=== PATIENT | female | born 1965 | race Caucasian/White ===

== ENCOUNTER → 2016-12-29 | Outpatient (CLI) | payer OTHER ==
--- NOTE | 2016-12-29 16:22 | KCIC ---
PROCEDURE MRI lumbar spine without contrast. HISTORY Chronic low back pain, spasmodic cerebral palsy, scoliosis, bilateral leg pain TECHNIQUE Multiplanar, multi sequential non contrast MR imaging was performed of the lumbar spine. COMPARISON None FINDINGS There is motion degradation even for repeated images. Lumbar vertebral body stature and AP alignment are adequate. Conus terminates at L1-2. There is moderate levoscoliosis centered about L1-2. There is mild disc desiccation L4-5 and L2-3, also mild degenerative disc disease at L1-L2. T11-12: Spinal canal and neural foramina are adequate. T12-L1: Neural foramina and spinal canal are adequate. L1-2: Spinal canal and neural foramina are adequate. L2-3: Spinal canal and neural foramina are adequate. L3-4: Spinal canal and neural foramina are adequate. L4-5: Spinal canal and left neural foramen are adequate, likely mild narrowing of the right neural foramen. There is right posterolateral annular tear. L5-S1: There is moderate left facet hypertrophic change. Spinal canal is adequate. There is moderate narrowing of the left neural foramen, right neural foramen adequate. IMPRESSION 1. Exam is degraded by motion. There is moderate lumbar levoscoliosis. There is no significant lumbar spinal stenosis. There is moderate narrowing of the left L5-S1 neural foramen, mild narrowing on the right at L4-5. There is mild degenerative disc disease greatest at L1-2. Electronically signed by: Kartik Tobias MD (Dec 29, 2016 16:21:28)
== END | disposition home or self-care (01) ==
LOC: KCIC MRI 14:38
PROVIDERS: ATTEND Family Medicine
DX: M51.36 Other intervertebral disc degeneration, lumbar region (principal); M54.5 Low back pain; M48.07 Spinal stenosis, lumbosacral region
CPT/HCPCS: 72148

== ENCOUNTER → 2019-11-04 | Day surgery (SDC) | payer OTHER ==
[~2019-11-04] MED LIST: ALPR0.5T PO; CELE200C PO; GABA600T7 PO; HYDROmorphone 2 MG/ML VIAL IV PRN; IV RINGERS,LACTATED 1000ML 1,000 ML IV SCH; LIDOCAINE 2% PF 5 ML VIAL. ONE; METO50TA4 PO; MORPHINE SULFATE 2 MG/ML VIAL. IV PRN; OMEP40CA45 PO; ONDANSETRON PF 4 MG/2 ML VIAL. IV PRN; OXYC20TA PO; PROCHLORPERAZINE 10 MG/2 ML VIAL. IV PRN; PROM12.58 PO; PROPOFOL 20 ML IV ONE; QUET100T4 PO; SUMA100T4 PO; TIZA6CAP3 PO; ZOLP10TA PO; fentaNYL PF VIAL 100 MCG/2 ML VIAL IV PRN
--- NOTE | 2019-11-04 08:41 | HP ---
ADMIT DATE: 11/04/2019 REFERRING PHYSICIAN: Subhash Isabel M.D. REASON FOR CONSULTATION: Nausea, vomiting, abdominal pain. HISTORY OF PRESENT ILLNESS: A 54-year-old female with past medical history significant for GERD, anxiety, hypertension, cerebral palsy, seen with persistent nausea and vomiting, and it was associated with recurrent attacks of pain this past weekend, it goes from her chest and to her wrists, scapula, and right neck. No particular foods seem to trigger the episodes, which can last for hours. There is no family history of gallbladder disease. Prior ultrasound has been unrevealing for stones and a PIPIDA scan several years back apparently was within normal limits. With the continued symptoms, she requests additional evaluation. PAST MEDICAL HISTORY: GERD, anxiety, hypertension, and cerebral palsy. ALLERGIES: HYDROCODONE, IODINE, MEPERIDINE, MORPHINE, AND NAPROSYN. MEDICATIONS: Include Xanax, Celebrex, gabapentin, metoprolol, omeprazole, oxycodone, promethazine, Seroquel, Zanaflex, and Ambien. FAMILY AND SOCIAL HISTORY: Significant for diabetes with her mother, ID with her grandfather. PAST SURGICAL HISTORY: Ankle surgery, hip replacement, hysterectomy, and shoulder surgery. REVIEW OF SYSTEMS: Per records. PHYSICAL EXAMINATION: GENERAL: Reveals a well-nourished and well-developed female who is alert, cooperative, and in mild distress. VITAL SIGNS: Temperature is 97.3, pulse is 79, and respiratory rate is 18. LUNGS: Clear. CARDIOVASCULAR: Reveals an S1, S2 without S3, S4 or appreciable murmur. ABDOMEN: With a soft abdomen, normal bowel sounds, without appreciable hepatosplenomegaly. EXTREMITIES: Reveals no cyanosis, clubbing, or edema. IMPRESSION AND PLAN: Abdominal pain, etiology determined. Differential includes peptic ulcer disease, gastroparesis, celiac, and chronic cholecystitis. Therefore, recommend upper endoscopy. If this is unrevealing, then a HIDA scan with ejection fraction would be pursued as well as possible gastric emptying study. YOAV DALTON MD DR: RENO/nilda JOB#: [id number] / [id number]
[2019-11-04 08:57] VITALS: BP 169/95
--- NOTE | 2019-11-07 16:06 | PATHOLOGY ---
[facility] Accession Number: [id number] . 01 Material submitted: . stomach - GASTRIC BX'S . 01 Clinical history: . Pre-OP DX: Hx of H. pylori Post-OP DX: Rule out H. pylori . 02 Diagnosis: Gastric biopsies: - Superficial congestion and mild chronic inflammation. (JPM:[facility] 11/07/2019) P 11/07/2019 1526 Local . 02 Comment: Sections of the gastric biopsy reveal multiple segments of gastric body mucosa showing superficial congestion and very mild chronic inflammation. A properly controlled immunoperoxidase stain for Helicobacter is negative for Helicobacter organisms. There is no evidence of malignancy. (JPM:[facility] 11/07/2019) . Special stain performed: Immunoperoxidase stain for Helicobacter . 02 Electronically signed: . Mark Rodriguez MD, Pathologist NPI- [id number] . 01 Gross description: . Received in formalin labeled "Nasim, Tawana, gastric BX's," are 4 segments of alexandra soft tissue measuring 0.9 x 0.8 x 0.3 cm in aggregate dimensions and ranging from 0.3 to 0.5 cm in maximum dimension. The specimen is submitted entirely in cassette A1. (TSD; 11/04/2019) TOB/TOB 11/04/2019 1655 Local . 02 Pathologist provided ICD-10: K29.30 . 02 CPT . 770219, [id number] Specimen Comment: A courtesy copy of this report has been sent to [phone], [phone] Specimen Comment: [id number] Specimen Comment: Report sent to and Performed at: [address], [place] [id number] MD Donald Robin MD Phone: [phone] Performed at: [address] [id number] MD Mark Rodriguez MD Phone: [phone]
== END ==
LOC: ENDOS 07:26
PROVIDERS: ATTEND Internal Medicine Gastroenterology
DX: R11.2 Nausea with vomiting, unspecified (principal); K29.50 Unspecified chronic gastritis without bleeding; K31.7 Polyp of stomach and duodenum; K21.9 Gastro-esophageal reflux disease without esophagitis; F41.9 Anxiety disorder, unspecified; E78.00 Pure hypercholesterolemia, unspecified; F32.9 Major depressive disorder, single episode, unspecified; I10 Essential (primary) hypertension; Z88.6 Allergy status to analgesic agent; Z88.5 Allergy status to narcotic agent; Z88.8 Allergy status to other drugs, medicaments and biological substances; Z90.710 Acquired absence of both cervix and uterus; Z98.890 Other specified postprocedural states; Z96.649 Presence of unspecified artificial hip joint; Z90.721 Acquired absence of ovaries, unilateral
CPT/HCPCS: 43239; J2001; J2704

== ENCOUNTER → 2019-12-02 | Outpatient (CLI) | payer OTHER ==
[2019-11-04 08:57] VITALS: BP 169/95
[~2019-12-02] MED LIST changes: -HYDROmorphone 2 MG/ML VIAL IV PRN; -IV RINGERS,LACTATED 1000ML 1,000 ML IV SCH; -LIDOCAINE 2% PF 5 ML VIAL. ONE; -MORPHINE SULFATE 2 MG/ML VIAL. IV PRN; -ONDANSETRON PF 4 MG/2 ML VIAL. IV PRN; -PROCHLORPERAZINE 10 MG/2 ML VIAL. IV PRN; -PROPOFOL 20 ML IV ONE; -fentaNYL PF VIAL 100 MCG/2 ML VIAL IV PRN
--- NOTE | 2019-12-02 16:38 | RAD ---
Gastric emptying study: INDICATION: Epigastric pain, nausea history of diabetes mellitus. TECHNIQUE: Following ingestion of 2 mCi of technetium labeled sulfa colloid meal, imaging of the abdomen was performed anteriorly and posteriorly at 0, 60, 120, 180 and 240 minutes post ingestion. Radiopharmaceutical counts over region of interest representing the stomach were calculated for estimation of a gastric retention proportion. Findings: Gastric retention at one hour was 100 percent At 2 hours, it was 61 percent At 3 hours, 38 percent At 4 hours, 18 percent. Published upper limits for gastric retention at 1, 2, 3 and 4 hours have been reported at 90 percent, 60 percent, 30 percent and 10 percent. IMPRESSION: Persisting gastric retention above upper limits of normal suggest mild gastroparesis. Electronically signed by: Jad Urrutia MD (12/02/2019 4:35 PM) [id number]
== END | disposition home or self-care (01) ==
LOC: NM 07:19
PROVIDERS: ATTEND Internal Medicine Gastroenterology
DX: K31.89 Other diseases of stomach and duodenum (principal); E11.9 Type 2 diabetes mellitus without complications
CPT/HCPCS: 78264; A9541

== ENCOUNTER → 2020-08-06 | Outpatient (CLI) | payer OTHER ==
[2019-11-04 08:57] VITALS: BP 169/95
[~2020-08-06] MED LIST changes: +FAMO40TA4 PO; +LUBI8CAP4 PO; +PROM25TA10 PO
== END ==
LOC: LAB 13:23
PROVIDERS: ATTEND Surgery
DX: Z01.812 Encounter for preprocedural laboratory examination (principal); K82.8 Other specified diseases of gallbladder; Z20.828 Contact with and (suspected) exposure to other viral communicable diseases
CPT/HCPCS: U0003-CS

== ENCOUNTER 2020-08-09 09:29 | Day surgery (SDC) | payer OTHER ==
[~2020-08-09] VITALS: Ht 144.8 cm; Wt 68.0 kg
[~2020-08-09 09:29] MED LIST changes: +ACETAMINOPHEN 500 MG TABLET PO PRN; +HYDROmorphone 2 MG/ML VIAL IV PRN; +IV RINGERS,LACTATED 1000ML 1,000 ML IV SCH; +LIDOCAINE 1% PF 2 ML VIAL. ID PRN; +ONDANSETRON PF 4 MG/2 ML VIAL. IV PRN; +PROCHLORPERAZINE 10 MG/2 ML VIAL. IV PRN; +ceFAZolin SODIUM IV Push 1 GM VIAL. IVP PRN; +fentaNYL PF VIAL 100 MCG/2 ML VIAL IV PRN
[2020-08-09] MEDS ORDERED: PROPOFOL 10 MG/ML (20ML) VIAL. IV ONE (09:43)
[2020-08-09] MEDS ORDERED: LIDOCAINE 2% PF 5 ML VIAL. ONE (09:43)
[2020-08-09] MEDS ORDERED: fentaNYL PF VIAL 100 MCG/2 ML VIAL ONE ×2 (09:44→11:51)
[2020-08-09] MEDS ORDERED: ROCURONIUM 50 MG/5 ML VIAL. ONE (09:44)
[2020-08-09] MEDS ORDERED: SCOPOLAMINE 1.5MG PATCH. TD ONE (10:00)
[2020-08-09] MEDS ORDERED: MIDAZOLAM HCL/PF 2 MG/2 ML VIAL. ONE (10:04)
[2020-08-09] MEDS ORDERED: IOHEXOL 300 MG/ML 50 ML VIAL. ONE (10:13)
[2020-08-09] MEDS ORDERED: SURGICEL HEMOSTAT 4X8 EACH. ONE (10:13)
[2020-08-09] MEDS ORDERED: BUPIVACAINE-EPI 0.25%-1:200000 MPF 30 ML VIAL. INJ ONE (10:30)
[2020-08-09] MEDS ORDERED: DEXTROSE 50% 25 GM / 50ML DISP.SYRIN. IV ONE (10:47)
[2020-08-09] MEDS ORDERED: ONDANSETRON PF 4 MG/2 ML VIAL. ONE ×2 (10:47→11:20)
[2020-08-09] MEDS ORDERED: GLYCOPYRROLATE 1 MG/5 ML VIAL. ONE (10:59)
[2020-08-09] MEDS ORDERED: NEOSTIGMINE METHYLSULFATE 5 MG/5 ML SYRINGE. ONE (10:59)
--- NOTE | 2020-08-09 11:29 | PDOC4 ---
Operative Note Operative Note Date: 1021 at 1126 Preoperative diagnosis: Biliary dyskinesia Postoperative diagnosis: Same Procedure: Laparoscopic cholecystectomy Surgeon: Janes Specimen: Gallbladder Dictation: Patient is 55-year-old female has had complaints of right upper quadrant abdominal pain ultrasound not show gallstones but with her HIDA scan although she had normal ejection fraction had significant pain with Kinevac injection. Procedure of laparoscopic cholecystectomy was explained to the patient detail risk benefits were also discussed including bleeding infection injury to intra-abdominal contents possibly necessitating further or open operations alternatives to this procedure also discussed with the patient who seemed to understand and gave a verbal and written consent to have procedure performed. Patient was taken to the operating room placed the supine position general anesthesia was initiated once patient was sleeping intubated her abdomen was prepped and draped usual sterile fashion using ChloraPrep. Area in the left upper quadrant injected with quarter percent Marcaine with epinephrine incision was made 11 blade scalpel and a 5 mm Visiport was placed under direct visualization and pneumoperitoneum was achieved once this complete 5 mm camera was placed within the abdomen which was inspected was noted that she had some adhesions in the right lower quadrant where she had previous had a ovary cyst removed these adhesions were quite dense of the small bowel to the abdominal wall under direct visualization a 11 mm port was placed just above the umbilicus taking great care not to involve the adhesions a 5 mm port was placed in the epigastrium a 5 mm port was placed in the right midabdomen and a 5 mm port was p laced in the right lateral abdomen. The dome of the gallbladder is grasped retracted cephalad the infundibulum of the gallbladder is grasped tract and laterally exposing the triangle adherent tissues the triangle were taken down with blunt dissection exposing the cystic duct was doubly clipped and transected as well as the cystic artery. The gallbladder is taken off the liver with hook electrocautery placed in Endo Catch bag removed and the umbilicus right upper quadrant was irrigated suctioned dry hemostasis deemed be appropriate the pneumoperitoneum was reduced all ports were removed the fascial defect at the umbilicus closed with [id number] 0 Vicryl suture and the skin was reapproximated all port sites for subcuticular Monocryl Mastisol Steri-Strips and island dressings were applied. Patient was awakened and extubated operating room taken to recovery in stable condition all sponge instrument needle counts listed as correct estimated blood loss 10 mL SYED MARIE MD Aug 09, 2020 11:29
--- NOTE | 2020-08-09 11:31 | DISCH ---
DISCHARGE INSTRUCTIONS Condition on Discharge Condition on Discharge: Stable Activity After Discharge Activity Instructions for Disc: Avoid exertion Other activity instructions: No lifting more than 20 pounds for 2 weeks Diet after Discharge Diet after Discharge: Low Fat Wound Incision Care Other wound/incision instructi: May shower in 24 hours Contacting the after DC Call your doctor for: If your condition worsens Follow-Up Follow up with: Dr. Marie in 2 weeks SYED MARIE MD Aug 09, 2020 11:30
[2020-08-09] MEDS: fentaNYL PF VIAL 100 MCG/2 ML VIAL IV PRN ×2 (11:55→12:09)
[2020-08-09] MEDS ORDERED: oxyCODONE/APAP 7.5/325 1 TAB TABLET PO ONE (12:00)
[2020-08-09] MEDS ORDERED: HYDROmorphone 2 MG/ML VIAL ONE (12:29)
[2020-08-09 12:35] VITALS: BP 125/82
== END 2020-08-09 13:20 | disposition home or self-care (01) ==
LOC: SURG 09:29
PROVIDERS: ATTEND Surgery
DX: K82.8 Other specified diseases of gallbladder (principal); F41.9 Anxiety disorder, unspecified; F32.9 Major depressive disorder, single episode, unspecified; I10 Essential (primary) hypertension; E11.9 Type 2 diabetes mellitus without complications; K21.9 Gastro-esophageal reflux disease without esophagitis; E78.00 Pure hypercholesterolemia, unspecified; Z79.84 Long term (current) use of oral hypoglycemic drugs; Z79.899 Other long term (current) drug therapy
CPT/HCPCS: 47562; J0690; J1170; J2250; J2405; J2704; J2710; J3010; J3490; A7015; J7030; Q9967

== ENCOUNTER → 2020-09-12 | Outpatient (CLI) | payer OTHER ==
[~2020-09-12] MED LIST changes: -ACETAMINOPHEN 500 MG TABLET PO PRN; -HYDROmorphone 2 MG/ML VIAL IV PRN; -IV RINGERS,LACTATED 1000ML 1,000 ML IV SCH; -LIDOCAINE 1% PF 2 ML VIAL. ID PRN; -ONDANSETRON PF 4 MG/2 ML VIAL. IV PRN; -PROCHLORPERAZINE 10 MG/2 ML VIAL. IV PRN; -ceFAZolin SODIUM IV Push 1 GM VIAL. IVP PRN; -fentaNYL PF VIAL 100 MCG/2 ML VIAL IV PRN
== END ==
LOC: LAB 13:54
PROVIDERS: ATTEND Surgery
DX: Z01.812 Encounter for preprocedural laboratory examination (principal); K66.0 Peritoneal adhesions (postprocedural) (postinfection); Z20.828 Contact with and (suspected) exposure to other viral communicable diseases
CPT/HCPCS: U0003

== ENCOUNTER 2020-09-19 09:12 | Observation (INO) | payer OTHER ==
[~2020-09-19] VITALS: Ht 144.8 cm; Wt 67.0 kg
[2020-09-19] VITALS (9 sets, daily range): BP systolic 133–163; BP diastolic 68–135
[~2020-09-19 09:12] MED LIST changes: +BUPIVACAINE-EPI 0.25%-1:200000 MPF 30 ML VIAL. INJ ONE; +DEXAMETHASONE SOD PHOS 4 MG/ML VIAL ONE; +HYDROmorphone 2 MG/ML VIAL IV PRN; +IV RINGERS,LACTATED 1000ML 1,000 ML IV SCH; +LIDOCAINE 1% PF 2 ML VIAL. ID PRN; +LIDOCAINE 2% PF 5 ML VIAL. ONE; +MIDAZOLAM HCL/PF 2 MG/2 ML VIAL. ONE; +MORPHINE SULFATE 2 MG/ML VIAL. IV PRN; +ONDANSETRON PF 4 MG/2 ML VIAL. IV PRN; +ONDANSETRON PF 4 MG/2 ML VIAL. ONE; +PROPOFOL 10 MG/ML (20ML) VIAL. IV ONE; +ROCURONIUM 50 MG/5 ML VIAL. ONE; +SCOPOLAMINE 1.5MG PATCH. TD ONE; +ceFAZolin SODIUM IV Push 1 GM VIAL. IVP PRN; +fentaNYL PF VIAL 100 MCG/2 ML VIAL IV PRN; +fentaNYL PF VIAL 100 MCG/2 ML VIAL ONE
[2020-09-19] MEDS ORDERED: SCOPOLAMINE 1.5MG PATCH. TD ONE (10:00)
[2020-09-19] MEDS ORDERED: GLYCOPYRROLATE 1 MG/5 ML VIAL. ONE (11:35)
[2020-09-19] MEDS ORDERED: NEOSTIGMINE METHYLSULFATE 5 MG/5 ML SYRINGE. ONE (11:36)
[2020-09-19] MEDS ORDERED: fentaNYL PF VIAL 100 MCG/2 ML VIAL ONE ×2 (11:42→12:50)
[2020-09-19] MEDS ORDERED: ALBUTEROL SULFATE 2.5 MG/3 ML NEBU. ONE (11:54)
[2020-09-19] MEDS ORDERED: ALBUTEROL SULFATE 8GM INHALER. INH ONE (12:15)
[2020-09-19] MEDS ORDERED: ALBUTEROL SULFATE 2.5 MG/3 ML NEBU. CONT NEB ONE (12:15)
--- NOTE | 2020-09-19 12:30 | PDOC4 ---
Operative Note Operative Note Date: September 192019 at 1226 Preoperative diagnosis left lower quadrant abdominal pain adhesions Postoperative diagnosis: Intra-abdominal adhesions inadvertent enterotomy Procedure: Robotic assisted laparoscopic lysis of adhesions and repair of small bowel enterotomy Surgeon: Janes Dictation: Patient is a 55-year-old female who recently had a laparoscopic cholecystectomy she has been having lower abdominal pain at the time of her laparoscopic cholecystectomy she is found to have dense adhesions in the lower abdomen. She returns now to have laparoscopic lysis of adhesions procedure of robotic assisted laparoscopic lysis of adhesions is explained to the patient in detail was benefits were also discussed including bleeding infection injury to intra-abdominal contents possible necessitating further or open operations alt ernatives to this procedure also discussed with the patient who seemed to understand and gave both verbal and written consent to have the procedure performed. Patient was taken to the operating room placed in the supine position general anesthesia was initiated once patient was sleeping intubated her abdomen was prepped and draped usual sterile fashion using ChloraPrep. Area in the left upper quadrant was injected quarter percent Marcaine with epinephrine incision was made 11 blade scalpel and a 5 mm Visiport was placed under direct visualization into the abdomen pneumoperitoneum was achieved once this complete abdomen was inspected with 5 mm scope was noted she had adhesions in the right lower abdomen to the right midabdomen involving small bowel. 8 mm da Christina port was placed in the midabdomen and 8 mm da Christina ports placed in the left lower abdomen and the 5 mm Visiport was changed out for an 8 mm da Christina port. The da Christina robot was brought and docked all port sites and the surgeon went to the robotic console using a grasper and Endo Gordy scissors adhesions were taken down with sharp dissection. The small bowel was densely adherent to the abdominal wall in several places these were carefully taken down. Was noted that the most densely here portion of the small bowel there was a enterotomy made while removing the small bowel from its attachments to the abdominal wall. This enterotomy was closed with a running interlocking 3-0 Vicryl suture and then oversewn with a 2 OV lock absorbable suture. Once all the adhesions were down the small bowel was inspected no other enterotomies were noted. The da Christina robot was undocked all port sites all ports were removed pneumoperitoneum reduced all port sites were closed with 4 subcuticular Monocryl Mastisol Steri- Strips and island dressings were applied. Patient was awakened and extubated operating room taken to recovery in stable condition all sponge instrument needle counts listed as correct estimated blood loss 5 mL SYED MARIE MD Sep 19, 2020 12:30
[2020-09-19] MEDS ORDERED: ONDANSETRON PF 4 MG/2 ML VIAL. IV PRN (12:45)
[2020-09-19] MEDS ORDERED: oxyCODONE/APAP 5/325 1 TAB TABLET PO PRN (12:45)
[2020-09-19] MEDS ORDERED: 0.9 % SODIUM CHLORIDE 10 ML DISP.SYRIN. IV PRN (12:45)
[2020-09-19] MEDS: IV DEXTROSE 5%-LACT RINGERS 1,000 ML IV SCH (12:45)
[2020-09-19] MEDS: fentaNYL PF VIAL 100 MCG/2 ML VIAL IV PRN ×4 (12:54→13:47)
[2020-09-19] MEDS ORDERED: ZOLPIDEM 5 MG TABLET. PO PRN (13:00)
[2020-09-19] MEDS ORDERED: PROCHLORPERAZINE 10 MG/2 ML VIAL. ONE (13:02)
[2020-09-19] MEDS: PROCHLORPERAZINE 10 MG/2 ML VIAL. IV PRN ×2 (13:07→13:40)
[2020-09-19] MEDS: GABAPENTIN 100 MG CAPSULE. PO SCH ×2 (14:00→20:10)
[2020-09-19] MEDS: oxyCODONE/APAP 5/325 1 TAB TABLET PO PRN ×2 (15:51→20:09)
[2020-09-19] MEDS: fentaNYL PF VIAL 100 MCG/2 ML VIAL IVP PRN (17:16)
[2020-09-19] MEDS: ERYTHROMYCIN BASE 250 MG TABLET PO SCH ×2 (17:16→20:11)
[2020-09-19] MEDS: cefOXitin SODIUM IV Push 1 GM VIAL. IVP SCH (20:08)
[2020-09-19] MEDS: QUEtiapine 100 MG TABLET. PO SCH (20:10)
[2020-09-19] MEDS: CELECOXIB 100 MG CAPSULE. PO SCH (20:10)
[2020-09-19] MEDS: METOPROLOL TART IMMED RELEASE 50 MG TABLET. PO SCH (20:10)
[2020-09-19] MEDS: FAMOTIDINE 20 MG TABLET. PO SCH (20:11)
[2020-09-19] MEDS: tiZANidine 4 MG TABLET. PO PRN (20:11)
[2020-09-20] MEDS: IV DEXTROSE 5%-LACT RINGERS 1,000 ML IV SCH (02:05)
[2020-09-20 02:38] VITALS: BP 107/66
[2020-09-20] MEDS: tiZANidine 4 MG TABLET. PO PRN (02:58)
[2020-09-20] MEDS: oxyCODONE/APAP 5/325 1 TAB TABLET PO PRN (02:59)
[2020-09-20] MEDS: cefOXitin SODIUM IV Push 1 GM VIAL. IVP SCH ×2 (02:59→10:45)
[2020-09-20] MEDS: fentaNYL PF VIAL 100 MCG/2 ML VIAL IVP PRN ×2 (05:05→10:45)
[2020-09-20 07:00] VITALS: BP_SYST 107; BP_SYST 76; BP_DIAS 27; BP_DIAS 66
[2020-09-20 07:52] LABS: BASO # 0.1 x10^3/uL (0.0-0.2); BASO % 1 % (0-3); EOS # 0.2 x10^3/uL (0.0-0.7); EOS % 3 % (0-3); HEMATOCRIT 30.9 % (36.0-47.0); HEMOGLOBIN 10.4 g/dL (12.0-15.5); LYMPH % 22 % (24-48); MEAN CORPUSCULAR HEMOGLOBIN 30 pg (25-35); MEAN CORPUSCULAR HGB CONC 34 g/dL (31-37); MEAN CORPUSCULAR VOLUME 88 fL (79-100); MONO # 0.9 x10^3/uL (0.0-1.1); MONO % 9 % (0-9); NEUT # 6.2 x10^3/uL (1.8-7.7); NEUT % 66 % (31-73); PLATELET COUNT 217 x10^3/uL (140-400); RED CELL DISTRIBUTION WIDTH 12.7 % (11.5-14.5); WHITE BLOOD COUNT 9.4 x10^3/uL (4.0-11.0)
[2020-09-20] MEDS: GABAPENTIN 100 MG CAPSULE. PO SCH (08:39)
[2020-09-20] MEDS: CELECOXIB 100 MG CAPSULE. PO SCH (08:39)
[2020-09-20] MEDS: ERYTHROMYCIN BASE 250 MG TABLET PO SCH (08:39)
[2020-09-20] MEDS: QUEtiapine 100 MG TABLET. PO SCH (08:39)
[2020-09-20] MEDS: FAMOTIDINE 20 MG TABLET. PO SCH (08:39)
[2020-09-20] MEDS: METOPROLOL TART IMMED RELEASE 50 MG TABLET. PO SCH (09:00)
--- NOTE | 2020-09-20 09:15 | DISCH ---
DISCHARGE INSTRUCTIONS Condition on Discharge Condition on Discharge: Stable Activity After Discharge Activity Instructions for Disc: Avoid exertion Other activity instructions: No lifting more than 20 pounds for 2 weeks Diet after Discharge Diet after Discharge: Regular Wound Incision Care Other wound/incision instructi: May shower in 24 hours Contacting the after DC Call your doctor for: If your condition worsens Follow-Up Follow up with: Dr. Marie in 2 weeks SYED MARIE MD Sep 20, 2020 09:14
--- NOTE | 2020-09-20 09:17 | PDOC3 ---
Discharge Summary Visit Information Date of Admission: Sep 19, 2020 Date of Discharge: Sep 20, 2020 Admitting Diagnosis: Abdominal pain and abdominal adhesions Final Diagnosis Abdominal adhesions Brief Hospital Course Allergies Allergies Coded Allergies Type Severity Reaction Last Updated Verified shellfish derived Allergy Severe throat swelled and skin turned red 09/20/20 Yes meperidine Allergy Intermediate 09/19/20 Yes morphine Adverse Reaction Intermediate 09/19/20 Yes naproxen Adverse Reaction Intermediate 09/19/20 Yes hydrocodone Adverse Reaction Mild Nausea and Vomiting 09/19/20 Yes Vital Signs Vital Signs Date Time Temp Pulse Resp B/P (MAP) Pulse Ox O2 Delivery O2 Flow Rate FiO2 09/20/20 07:00 97.4 62 107/66 (80) 96 Room Air 2.0 97.4 09/20/20 07:00 18 Lab Results Laboratory Tests Test 09/20/20 07:00 White Blood Count 9.4 x10^3/uL (4.0-11.0) Red Blood Count 3.50 x10^6/uL (3.50-5.40) Hemoglobin 10.4 g/dL (12.0-15.5) Hematocrit 30.9 % (36.0-47.0) Mean Corpuscular Volume 88 fL (79-100) Mean Corpuscular Hemoglobin 30 pg (25-35) Mean Corpuscular Hemoglobin Concent 34 g/dL (31-37) Red Cell Distribution Width 12.7 % (11.5-14.5) Platelet Count 217 x10^3/uL (140-400) Neutrophils (%) (Auto) 66 % (31-73) Lymphocytes (%) (Auto) 22 % (24-48) Monocytes (%) (Auto) 9 % (0-9) Eosinophils (%) (Auto) 3 % (0-3) Basophils (%) (Auto) 1 % (0-3) Neutrophils # (Auto) 6.2 x10^3/uL (1.8-7.7) Lymphocytes # (Auto) 2.0 x10^3/uL (1.0-4.8) Monocytes # (Auto) 0.9 x10^3/uL (0.0-1.1) Eosinophils # (Auto) 0.2 x10^3/uL (0.0-0.7) Basophils # (Auto) 0.1 x10^3/uL (0.0-0.2) Laboratory Tests Test 09/20/20 07:00 White Blood Count 9.4 x10^3/uL (4.0-11.0) Red Blood Count 3.50 x10^6/uL (3.50-5.40) Hemoglobin 10.4 g/dL (12.0-15.5) Hematocrit 30.9 % (36.0-47.0) Mean Corpuscular Volume 88 fL (79-100) Mean Corpuscular Hemoglobin 30 pg (25-35) Mean Corpuscular Hemoglobin Concent 34 g/dL (31-37) Red Cell Distribution Width 12.7 % (11.5-14.5) Platelet Count 217 x10^3/uL (140-400) Neutrophils (%) (Auto) 66 % (31-73) Lymphocytes (%) (Auto) 22 % (24-48) Monocytes (%) (Auto) 9 % (0-9) Eosinophils (%) (Auto) 3 % (0-3) Basophils (%) (Auto) 1 % (0-3) Neutrophils # (Auto) 6.2 x10^3/uL (1.8-7.7) Lymphocytes # (Auto) 2.0 x10^3/uL (1.0-4.8) Monocytes # (Auto) 0.9 x10^3/uL (0.0-1.1) Eosinophils # (Auto) 0.2 x10^3/uL (0.0-0.7) Basophils # (Auto) 0.1 x10^3/uL (0.0-0.2) Brief Hospital Course Ms. Rouse is a 55 old female is admitted to the hospital for diagnostic laparoscopy and lysis of adhesions of her abdomen she underwent her surgery. During surgery she did have some bronchospasms and because of this elected to keep her overnight for observation she did quite well overnight without any complaints tolerated regular diet afebrile and her vital signs were stable CBC was within normal limits. She has been discharged home in stable condition Assessment Assessment Stable Discharge Information Condition at Discharge: Improved Follow Up: Weeks Disposition/Orders: D/C to Home Scheduled Celecoxib (Celebrex) 200 Mg Capsule, 200 MG PO BID for ANTI INF for 30 Days, Ref 0 (Reported) Entered as Reported by: HOLLEY WATTERS on 11/04/19804 Last Taken: Unknown Dose on 09/18/20 Last Action: Last Taken Edited on 09/19/20953 by ROSIO RUIZ Famotidine (Famotidine) 40 Mg Tablet, 40 MG PO HS for gerd, (Reported) Entered as Reported by: Jeanne Sarah on 08/06/20949 Last Taken: Unknown Dose on 09/19/20699 Last Action: Last Taken Edited on 09/19/20953 by ROSIO RUIZ Gabapentin (Gabapentin) 600 Mg Tablet, 100 MG PO HS for NEUROGENIC PAIN, (Reported) Entered as Reported by: HOLLEY WATTERS on 11/04/19804 Last Taken: Unknown Dose on 09/18/20 Last Action: Last Taken Edited on 09/19/20953 by ROSIO RUIZ Lubiprostone (Amitiza) 8 Mcg Capsule, 1 CAP PO BID for constipation for 30 Days, #60 Ref 0 (Reported) Entered as Reported by: Jeanne Sarah on 08/06/20949 Last Taken: Unknown Dose on 09/18/20 Last Action: Last Taken Edited on 09/19/20953 by ROSIO RUIZ Metoprolol Succinate (Toprol XL) 50 Mg Tab.er.24h, 50 MG PO BID for FOR HYPERTENSION, (Reported) Entered as Reported by: HOLLEY WATTERS on 11/04/19804 Last Taken: Unknown Dose on 09/19/20699 Last Action: Last Taken Edited on 09/19/20953 by ROSIO RUIZ Omeprazole (Omeprazole) 40 Mg Capsule.dr, 40 MG PO DAILY for REFLUX, (Reported) Entered as Reported by: HOLLEY WATTERS on 11/04/19804 Last Taken: Unknown Dose on 09/18/20 Last Action: Last Taken Edited on 09/19/20953 by ROSIO RUIZ Quetiapine Fumarate (Seroquel) 100 Mg Tablet, 100 MG PO BID for SLEEP, (Reported) Entered as Reported by: HOLLEY WATTERS on 11/04/19804 Last Taken: Unknown Dose on 09/19/20699 Last Action: Last Taken Edited on 09/19/20953 by ROSIO RUIZ Scheduled PRN Alprazolam (Xanax) 0.5 Mg Tablet, 0.5 MG PO PRN Q6HRS PRN for ANXIETY / AGITATION, Ref 0 (Reported) Entered as Reported by: HOLLEY WATTERS on 11/04/19804 Last Taken: Unknown Dose on 09/19/20699 Last Action: Last Taken Edited on 09/19/20953 by ROSIO RUIZ Oxycodone Hcl (Oxycodone Hcl) 20 Mg Tablet, 20 MG PO Q4-6HRS PRN for PAIN, Ref 0 (Reported) Entered as Reported by: HOLLEY WATTERS on 11/04/19804 Last Taken: Unknown Dose on 09/19/20699 Last Action: Last Taken Edited on 09/19/20953 by ROSIO RUIZ Promethazine Hcl (Promethazine Hcl) 25 Mg Tablet, 25 MG PO Q6H PRN for NAUSEA/VOMITING, (Reported) Entered as Reported by: Jeanne Sarah on 08/06/20 0950 Last Taken: Unknown Dose on 09/19/20699 Last Action: Last Taken Edited on 09/19/20953 by ROSIO RUIZ Sumatriptan Succinate (Sumatriptan Succinate) 100 Mg Tablet, 100 MG PO PRN Q2HR PRN for MIGRAINE HEADACHE, (Reported) Entered as Reported by: HOLLEY WATTERS on 11/04/19804 Last Taken: Unknown Dose on 09/10/20 Last Action: Last Taken Edited on 09/19/20953 by ROSIO RUIZ Tizanidine Hcl (Zanaflex) 6 Mg Capsule, 8 MG PO TID PRN for MUSCLE SPASMS, (Reported) Entered as Reported by: HOLLEY WATTERS on 11/04/19804 Last Taken: Unknown Dose on 09/18/20 Last Action: Last Taken Edited on 09/19/20953 by ROSIO RUIZ Zolpidem Tartrate (Ambien) 10 Mg Tablet, 10 MG PO PRN QHS PRN for INSOMNIA, Ref 0 (Reported) Entered as Reported by: HOLLEY WATTERS on 11/04/19804 Last Taken: Unknown Dose on 09/18/20 Last Action: Last Taken Edited on 09/19/20953 by ROSIO RUIZ Justicifation of Admission Dx: Justifications for Admission: Justification of Admission Dx: N/A SYED MARIE MD Sep 20, 2020 09:17
--- NOTE | 2020-09-20 09:38 | NUR ---
SW following. Discussed with RN, pt from home, room air, regular diet. Pt had surgery 09/19/2020. Discharge order for home with self care. RN advised no SW needs.
== END 2020-09-20 11:10 | disposition home or self-care (01) ==
LOC: SURG 09:12 → 4 NORTH 12:38
PROVIDERS: ADMIT Surgery; ATTEND Surgery
DX: K66.0 Peritoneal adhesions (postprocedural) (postinfection) (principal); J98.01 Acute bronchospasm
CPT/HCPCS: 36415; 44020; 85025; 96374; 96375; 96376; G0378; G0379; J0690; J0694; J0780; J1100; J2250; J2704; J2710; J3010; J3490; J7613; J2405